=== PATIENT | female | born 1970 | race African-American/Black ===

== ENCOUNTER 2016-06-18 12:21 | Emergency (ER) | payer OTHER ==
[~2016-06-18] VITALS: Ht 170.2 cm; Wt 68.0 kg
[2016-06-18 12:35] VITALS: BP 139/93
[2016-06-18] MEDS ORDERED: D-ME118S2 PO (13:31)
--- NOTE | 2016-06-18 13:32 | PHYS DOC ---
Past Medical History Past Medical History: Other Additional Past Medical Histor: Chronic back pain. Past Surgical History: , Other Additional Past Surgical Histo: Uterine ablation,Laproscopy with removal of scar tissue. Alcohol Use: Occasionally Drug Use: None Adult General Chief Complaint Chief Complaint: FEVER HPI HPI Patient is a 46 year old female presents to the emergent today with a one-week history of cough, congestion, nausea, vomiting and body aches. Patient states that she was seen at [facility] 2 days ago and had a negative flu test result. She states that her symptoms have not worsened much but continues to feel achy and ill. Patient verbalizes concern that she is due to go back to work in 4 days and may not be able to and she works for an [employer]. Review of Systems Review of Systems Constitutional: Denies fever or chills [] Eyes: Denies change in visual acuity, redness, or eye pain [] HENT: Denies nasal congestion or sore throat [] Respiratory: Denies cough or shortness of breath [] Cardiovascular: No additional information not addressed in HPI [] GI: Denies abdominal pain, nausea, vomiting, bloody stools or diarrhea [] : Denies dysuria or hematuria [] Musculoskeletal: Denies back pain or joint pain [] Integument: Denies rash or skin lesions [] Neurologic: Denies headache, focal weakness or sensory changes [] Endocrine: Denies polyuria or polydipsia [] Allergies Allergies Allergies Coded Allergies Type Severity Reaction Last Updated Verified No Known Drug Allergies 06/18/16 No Physical Exam Physical Exam Constitutional: Well developed, well nourished, no acute distress, non-toxic appearance. [] HENT: Normocephalic, atraumatic, bilateral external ears normal, oropharynx moist, no oral exudates, scant amount of clear rhinorrhea bilaterally. Eyes: PERRLA, EOMI, conjunctiva normal, no discharge. [] Neck: Normal range of motion, no tenderness, supple, no stridor. There is no meningismus. There is bilateral anterior and posterior cervical lymphadenopathy. Cardiovascular:Heart rate regular rhythm, no murmur [] Lungs & Thorax: Bilateral breath sounds clear to auscultation [] Abdomen: Bowel sounds normal, soft, no tenderness, no masses, no pulsatile masses. [] Skin: Warm, dry, no erythema, no rash. [] Back: No tenderness, no CVA tenderness. [] Extremities: No tenderness, no cyanosis, no clubbing, ROM intact, no edema. [] Neurologic: Alert and oriented X 3, normal motor function, normal sensory function, no focal deficits noted. [] Psychologic: Affect normal, judgement normal, mood normal. [] Current Patient Data Vital Signs Vital Signs Date Time Temp Pulse Resp B/P Pulse Ox O2 Delivery O2 Flow Rate FiO2 06/18/16 12:35 98.4 82 20 96 Room Air 98.4 EKG EKG [] Radiology/Procedures Radiology/Procedures [] Course & Med Decision Making Course & Med Decision Making Pertinent Labs and Imaging studies reviewed. (See chart for details) [] Dragon Disclaimer Dragon Disclaimer This electronic medical record was generated, in whole or in part, using a voice recognition dictation system. Departure Departure Impression: Primary Impression: Viral syndrome Disposition: HOME, SELF-CARE Condition: GOOD Referrals: ALYSSA MEDINA MD (PCP) Patient Instructions: Viral Syndrome Additional Instructions: 1. Take the medication as prescribed. 2. Review the discharge instructions for self-care and reasons to return to the emergency department. 3. A pamphlet is provided to you for assistance in finding a primary care doctor in which to follow-up. Please call this afternoon or Tuesday to schedule follow-up appointment for reevaluation. Scripts D-Methorphan Hb/Prometh Hcl (Promethazine-Dm Syrup)118 Ml Syrup5 Ml PO PRN Q6HRS #120 ML Prov:BRIANNA KELLOGG 06/18/16 BRIANNA KELLOGG Jun 18, 2016 13:32
== END 2016-06-18 13:45 | disposition home or self-care (01) ==
LOC: ER 12:21
DX: B34.9 Viral infection, unspecified (principal); G89.29 Other chronic pain
CPT/HCPCS: 99283

== ENCOUNTER → 2017-07-28 | Outpatient (CLI) | payer OTHER | END | disposition home or self-care (01) | LOC: PNCL 08:03 | DX: M51.27 Other intervertebral disc displacement, lumbosacral region (principal); I10 Essential (primary) hypertension; E11.9 Type 2 diabetes mellitus without complications | CPT/HCPCS: 99214 ==

== ENCOUNTER → 2017-08-15 | Outpatient (CLI) | payer OTHER ==
[~2017-08-15] MED LIST: IOHEXOL 180 MG/ML 10 ML VIAL.; methylPREDNISolone ACETATE 40 MG/ML VIAL.; methylPREDNISolone ACETATE 80 MG/ML VIAL.
== END ==
LOC: PNCL 13:11
DX: M51.16 Intervertebral disc disorders with radiculopathy, lumbar region (principal); M54.5 Low back pain; Z79.899 Other long term (current) drug therapy
CPT/HCPCS: 62323; J1030; J1040; Q9965

== ENCOUNTER → 2017-08-15 | Outpatient (CLI) | payer OTHER | END | disposition home or self-care (01) | LOC: MAMMO 14:06 | DX: Z12.31 Encounter for screening mammogram for malignant neoplasm of breast (principal) | CPT/HCPCS: 77063; 77067 ==

== ENCOUNTER → 2017-09-21 | Outpatient (CLI) | payer OTHER | END | disposition home or self-care (01) | LOC: PNCL 10:21 | DX: M51.16 Intervertebral disc disorders with radiculopathy, lumbar region (principal) | CPT/HCPCS: 99212 ==

== ENCOUNTER → 2018-08-30 | Outpatient (CLI) | payer OTHER ==
[~2018-08-30] MED LIST changes: +AMLO5TAB10 PO; +ASCO-78 PO; +CHOL100013 PO; +D-ME118S2 PO; +HYDR12.58 PO; -IOHEXOL 180 MG/ML 10 ML VIAL.; +LOSA100T14 PO; +METF10007 PO; +MULT1TAB52 PO; +OMEG1CAP27 PO; -methylPREDNISolone ACETATE 40 MG/ML VIAL.; -methylPREDNISolone ACETATE 80 MG/ML VIAL.
--- NOTE | 2018-08-30 15:03 | KCIC ---
EXAM: 3 views of both knees DATE: 08/30/2018 12:00 AM INDICATION: Chronic bilateral knee pain COMPARISON: No Prior FINDINGS: Right knee: No evidence of acute fracture or dislocation. Joint spaces are preserved without significant degenerative/proliferative change. Small suprapatellar enthesophyte. No knee joint effusion. Neutral patellar tracking. Left knee: No evidence of acute fracture or dislocation. Joint spaces are preserved without significant degenerative/proliferative change. No knee joint effusion. Small suprapatellar enthesophyte. No left knee joint effusion. Neutral patellar tracking. IMPRESSION: 1. No evidence of acute fracture or dislocation. 2. No significant joint space narrowing or associated proliferative change. Electronically signed by: Antonino Conteh MD (08/30/2018 3:00 PM) [id number]
== END | disposition home or self-care (01) ==
LOC: KCIC 12:15
PROVIDERS: ATTEND Nurse Practitioner Gerontology
DX: M25.561 Pain in right knee (principal); M25.562 Pain in left knee
CPT/HCPCS: 73562

== ENCOUNTER → 2018-10-06 | Outpatient (CLI) | payer OTHER ==
--- NOTE | 2018-10-06 12:59 | KCIC ---
MR of the left knee HISTORY: Left anterior knee pain. TECHNIQUE: Routine multiplanar sequences are obtained. FINDINGS: There is no evidence of a medial meniscal tear. No evidence of a lateral meniscal tear. The anterior and posterior cruciate ligaments are intact. Medial collateral ligament intact. Iliotibial band unremarkable. Fibular collateral ligament, biceps femoris tendon and popliteus tendon are intact. Extensor mechanism is intact. No significant joint effusion. No evidence of acute articular cartilage defect. No bone destruction or acute fracture. There is a small cortical based lesion at the medial femoral metaphysis, hypointense, compatible with a small fibrous cortical defect. Small Pabon's cyst. IMPRESSION: No evidence of internal derangement or significant abnormality. Electronically signed by: Mukesh Munoz MD (10/06/2018 12:56 PM) [id number]
== END | disposition home or self-care (01) ==
LOC: KCIC MRI 08:54
PROVIDERS: ATTEND Nurse Practitioner Gerontology
DX: M71.22 Synovial cyst of popliteal space [Baker], left knee (principal); M25.862 Other specified joint disorders, left knee
CPT/HCPCS: 73721